=== PATIENT | male | born 1940 | race Caucasian/White ===

== ENCOUNTER 2017-03-01 06:48 | Emergency (ER) | payer MEDICARE ==
[~2017-03-01] VITALS: Ht 180.3 cm; Wt 117.9 kg
[~2017-03-01 06:48] MED LIST: AMARYL 4MG. TAB4 MG PO; BUSPAR 10MG TAB10 MG; BUSPAR 10MG TAB10 MG PO; FUROSEMIDE 20MG20 MG PO; GLIMEPIRIDE 4MG4 MG; GUAIFENESIN 600 MG PO; LASIX 20MG. TAB20 MG; LISINOPRIL 5MG T5 MG; LISINOPRIL 5MG T5 MG PO; LISINOPRIL2.5 MG PO; MAXZIDE 25 MG-31 TAB PO; METFORMIN850 MG PO; OMNICEF 300 MG300 MG PO; POTASSIUM CHLO10 ME3 PO; PRAVACHOL40 M1 PO; PRAVACHOL40 MG PO; PREDNISONE 20MG20 MG PO; SYMBICORT1 AER; TAMSULOSIN HYD0.4 M1; THEO-DUR 300MG300 MG; THEO-DUR 300MG300 MG PO; ZITHROMAX TRI-500 MG PO
--- NOTE | 2017-03-01 07:00 | Emergency Room Report ---
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 PT WITH C /O RIGHT KNEE PAIN ONLY Onset of symptoms date/time:/ or onset unknown for:MEDICAL HX UNKNOWN Treatment Prior to Arrival: EMS TRANSPORT COMMUNITY EDUCATION COORDINATOR Provided by:CLASSIFICATION ANALYST Sepsis Risk Assessment: Temp: 97.9 B/P: 104/58 MAP: 73 Pulse: 82 Resp: 20 Recent fever? N Clinical Suspician of Infection? N Mental Status: 1 - Regular (Normal Baseline) Sepsis Risk:Low Sepsis Risk Have you (or family members/close friends) recently traveled outside the [place]? N If Yes, where/when: Have you had exposure to infectious disease within the past month? N TB? Other? Specify: Comment The patient arrives by ambulance with report of altered mental status. Family reported that his speech was slurred. There is a report that the patient took 2 Ativan this morning. The patient also complains of RIGHT knee pain. He also tells me that he "can't breathe". He was uncooperative during transport. The patient denies any other pain except his RIGHT knee. He is a difficult historian. The patient also reports that the same thing happen to him yesterday morning. 7:20 AM: is now here. She states that for the past couple of hours his behavior has been abnormal. He has been yelling and delirious. She says his speech still does not sound RIGHT. She says it sounds like "his throat is full of congestion". She says that he saw his PCP, Dr. Knowles, in [place] on 4 days ago and was started on lorazepam for anxiety. He has only taken it for 2 days. His knee pain is a new complaint today. ALLERGIES Coded Allergies: No Known Allergies (03/01/17) Home Medications Reported Medications Furosemide (Furosemide) 1 TAB PO BID 90 Days Pravastatin Sodium (Pravachol) 1 TAB PO QHS 90 Days LISINOPRIL (Lisinopril) 5 MG PO DAILY Lorazepam (Lorazepam 1MG) 1 MG PO TIDP PRN ANXIETY BUDESONIDE/FORMOTEROL FUMARATE (Symbicort 80-4.5 Mcg Inhaler) Buspirone Hcl (Buspar 10MG) Glimepiride (Glimepiride 4MG Tablet) TAMSULOSIN HCL (Tamsulosin HCl) Theophylline (Girish-Dur 300MG) (Madhav Dinero MD) History Medical History General Angina: No OR: No Hypertension? No Hyperlipidemia? Yes COPD? Yes Asthma? Yes CVA? No Seizures? No Diabetes? Yes GB Disease: Yes MRSA? No TB? No Cancer? No Immunization Hx DT/Tetanus > 10 YRS Flu LAST YEAR Pneumonia Received In Past Surgical Hx Previous Surgery?Y Gallbladd FINGER Family History Family Hx Diabetes Yes CAD Yes Hypertension Yes Hyperlipidemia Yes Cancer Yes TB Yes Social History Smoking Hx Smoker: Former Smoker Tobacco: No Packs/day 1 1/2 - 2 Packs Alcohol Alcohol: No Additionial History Additional History Old labs reviewed. The patient's renal failure and anemia are new since last laboratory data here in 2012. (Madhav Dinero MD) Review of Systems All Other Systems Reviewed and Negative Constitutional denies fever Respiratory shortness of breath Cardiovascular denies chest pain Gastrointestinal denies abdominal pain, denies vomiting Musculoskeletal joint pain (right knee) Psychiatric/Neurological denies headache (Madhav Dinero MD) Physical Exam Vital Signs Vital Signs Date Time Temp Pulse Resp B/P Pulse O2 O2 Flow FiO2 Ox Delivery Rate 03/01 0940 3 03/01 0940 3 03/01 0940 98 OXYGEN 3 03/01 0859 87 20 120/87 95 03/01 0804 90 20 104/58 99 03/01 0649 97.9 82 20 104/58 97 General Appearance obese, unkempt, smells of urine, appears to been incontinent, behaviors labile. At times screaming at examiner. Other times lying with eyes closed. Eye Exam - bilateral eye normal exam, bilateral eye PERRL, bilateral eye EOMI Ear, Nose, Throat hearing grossly normal, normal ENT inspection Neck normal inspection, non-tender, supple, full range of motion Respiratory Status Yes: trachea midline, chest symmetrical, non tender chest. No: respiratory distress. Lung Sounds bilateral: normal breath sounds, lungs clear. 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 Finger to nose good. Mental status normal mood/affect Skin intact, normal color, warm/dry (Rosette BREWER, Madhav) Medical Decision Making LABS/Meds/Orders Pt receiving controlled substance in ED? No Results/Orders Laboratory Tests 03/01/17 0858: Opiates Screen NEGATIVE, Urine Methadone Screen NEGATIVE, Barbiturates NEGATIVE, Phencyclidine Screen NEGATIVE, Amphetamines Screen NEGATIVE, Benzodiazepines Screen NEGATIVE, Cocaine Screen NEGATIVE, Marijuana (THC) Screen NEGATIVE, Urine Color YELLOW, Urine Appearance CLEAR, Urine pH 5.5, Ur Specific [place] 1.015, Urine Protein NEGATIVE, Urine Ketones NEGATIVE, Urine Blood NEGATIVE, Urine Nitrate NEGATIVE, Urine Bilirubin NEGATIVE, Urine Urobilinogen 0.2, Ur Leukocyte Esterase NEGATIVE, Urine WBC 3-5, Ur Squamous Epith Cells 3-5, Urine Bacteria 2+ , Hyaline Casts 5-10, Urine Mucus 2+, Urine Glucose NEGATIVE 03/01/17 0800: ABG pH 7.33 L, ABG pCO2 (Temp Corrct 43.7, ABG pO2 (Temp Correct 156.8 H, ABG HCO3 22.6, ABG Total CO2 24.0, ABG O2 Sat (Calculated) 98.5, ABG Base Excess - 3.3 L, Kofi Test ACCEPTABLE, Blood Gas Comments LEFT RADIAL 03/01/17 0716: POC Glucose 206 H 03/01/17 0705: Lactic Acid 0.6 03/01/17 0705: Sodium 140, Potassium 4.3, Chloride 104, Carbon Dioxide 27, BUN 47 H, Creatinine 2.7 H, Estimated Creat Clear 39 L, Estimated GFR (MDRD) 23, Glucose 46 *L, Calcium 8.4 L, Total Bilirubin 0.2, AST 22, ALT 16, Alkaline Phosphatase 68, Creatine Kinase 438 H, CK-MB (CK-2) Rel Index 1.0, CK and CKMB Interp 4.4 H, Troponin I < 0.02, Total Protein 7.3, Albumin 3.3 L, Globulin 4.0 H, Albumin/Globulin Ratio 0.8 L, WBC 9.8, RBC 3.23 L, Hgb 9.9 L, Hct 30.4 L, MCV 94.1, RDW 13.9, Plt Count 233, MPV 6.7 L, Gran % 82.5 H, Gran # 8.1 H, Lymphocytes % 10.3, Monocytes % 5.2, Eosinophils % 1.7, Basophils % 0.3, Lymphocytes # 1.0, Monocytes # 0.5, Eosinophils # 0.2, Basophils # 0.0, PUBS MCHC 33.1, MCH 31.2, Salicylates 3.5, Acetaminophen 0 L, Alcohols 0 Current Medication Orders Sig/Cristobal Start time Last Medication Dose Route Stop Time Status Admin Albuterol/Ipratropium 3 ML ONCE ONE 03/01 0930 DC 03/01 INH 03/01 0931 0940 Albuterol/Ipratropium 0 .STK-MED ONE 03/01 0927 DC INH Dextrose 50 ML ONCE ONE 03/01 0715 DC 03/01 IVP 03/01 0716 0707 Sodium Chloride 10 ML PRN PRN 03/01 0715 AC IV 03/02 0702 Sodium Chloride 1,000 ML .Q1H1M 03/01 0715 DC 03/01 IV 03/01 0815 0711 Sodium Chloride 10 ML PRN PRN 03/01 0715 AC IV 03/02 0710 Sodium Chloride 1,000 ML .STK-MED ONE 03/01 0704 DC IV Dextrose 0 .STK-MED ONE 03/01 0701 DC .ROUTE Orders Procedure Date/time Status DIET-NOTHING BY MOUTH 03/01 B Active RT Pulse Oximetry, Provide 03/01 956 Active RT O2 Installation/Change Set 03/01 956 Active RT O2 Therapy, Monitor/[place] 03/01 956 Active RT Aerosol Treatment, Provide 03/01 956 Active RT Aerosol Treatment, Provide 03/01 955 Active RT REQUEST DUONEB 03/01 09 Active OP COURTSEY MEAL 03/01 0858 Active CULTURE, URINE 03/01 858 Active CHEST-PORTABLE 03/01 0855 Active 12 LEAD EKG-ELIJAH (INITIAL) 03/[address] HEAD W/O CONTRAST 03/[address] HEAD REQ 03/01 723 Complete FINGERSTICK BLOOD SUGAR 03/01 0716 Complete URINALYSIS/COMPLETE 03/01 703 Complete SALICYLATE 03/01 703 Complete DRUG ABUSE SCREEN (TRIAGE) 03/01 703 Complete ALCOHOL 03/01 703 Complete Acetaminophen 03/01 703 Complete ELECTROCARDIOGRAM REQUEST 03/01 702 Active ARTERIAL BLOOD GAS REQUEST 03/01 702 Active IV SALINE LOCK 03/01 702 Active LACTIC ACID 03/01 702 Complete CBC WITH AUTO DIFF 03/01 702 Complete CARDIAC ENZYMES 03/01 702 Complete CHEM 12 PROFILE 03/01 702 Complete CM/EKG CM/EKG Comments EKG interpreted by Madhav Dinero MD: Rhythm: sinus Rate: 88 Corinne: normal Ectopy: none Conduction: Incomplete RIGHT bundle-branch block ST Segment Changes: none T Wave Changes: none Q Waves: none No evidence of acute ischemia or injury Baseline artifact and wander present, but I consider the EKG adequate for accurate interpretation. XRAY/CT/US XRAY/CT/US XRAY knee Comment Interpreted by Madhav Dinero MD. Negative for fracture, dislocation, or foreign body. Severe degenerative joint disease with complete loss of joint space medially. Progress - 7:09 AM: Patient much improved afterward D50. Now conversant in an appropriate manner. States that he wears an oxygen mask at night, possibly CPAP, but when he wakes up he is short of breath. 7:45 AM: The x-ray tech reports the patient also complains of LEFT hip pain now. X-ray added. 7:54 AM: X-ray tech reports that patient refused hip and pelvis x-ray, stated it was just hurting from laying on the CT scan table. 8:00 AM: At shift change, I have discussed the patient with Dr. Robins, who will assume care of the patient at this time. I have discussed all clinical information including history, physical and diagnostic study results. Preliminary diagnoses based on information available at this point have been recorded by me. Controlled substance administration and critical care statement are also preliminary, as of the time of handoff. (Rosette BREWER, Madhav) XRAY/CT/US XRAY/CT/US XRAY chest XR interpretation by reviewed by me Xray Results emphysema, no acute consolidations, no pneumothorax CT head CT Results no acute intracranial process (Gilmer Robins MD) Departure Departure Clinical Impression Primary Impression: Hypoglycemia associated with diabetes Secondary Impressions: Anemia Qualifiers: Anemia type: unspecified type Qualified Code: D64.9 - Anemia, unspecified Confusion Dyspnea Qualifiers: Dyspnea type: shortness of breath Qualified Code: R06.02 - Shortness of breath Left hip pain Renal failure Right knee pain Qualifiers: Chronicity: acute Qualified Code: M25.561 - Pain in right knee Slurred speech Condition STABLE Referrals [facility] (Family) ED Critical Care Critical Care Yes Time spent 30-74 min Vital system(s) involved: Metabolic Failure (hypoglycemia) I was present at bedside for Coordinating pt's care, Interpreting EKGs/Strips , During my initial exam, Reviewing lab results, Reviewing old records, Discussing pt condition, For re-examinations (Madhav Dinero MD) Departure Disposition DC Home or Self Care(routine) Additional Instructions You need to check your fingerstick at least 3 times daily to keep good control on your blood glucose. It is important that you keep a log of your blood sugars 3 times daily and present this to your primary care provider in one to 2 days for reevaluation. Return to the emergency department for any acute new concerns. You must follow-up with your primary care provider within the next 2 days for reevaluation. Comments Patient care transferred to me at 0800. He is alert and appropriately interactive on my exam. His chest x-ray does not show any acute consolidations per my read. He is maintaining oxygen saturations of 95 percent on his home dose of oxygen of [address] scan of the head is unremarkable for any signs of acute ischemia and repeat examination by myself reveals no focal neurologic deficits. His fingerstick remains appropriate here on multiple rechecks and patient is tolerating by mouth well. I recommended that he follow-up with his primary care provider today or tomorrow for reevaluation and to consider adjustment and diabetic medications. Creatinine is elevated at 2.7 but we were able to get in touch with his primary care provider office and this is close to his baseline with the last creatinine being 2.4 on February 26. I have recommended frequent fingerstick checks at home at least 3 times daily. (Gilmer Robins MD) at 0803 at 100
[2017-03-01] MEDS ORDERED: LISINOPRIL 5MG T5 MG PO (07:22)
[2017-03-01] MEDS ORDERED: LORAZEPAM1 MG/TABLE PO (07:24)
[2017-03-01 07:27] LABS: LYMPH % 10.3 % (10-50)
[2017-03-01 07:28] LABS: HEMOGLOBIN 9.9 g/dL (14.1-18.0)
[2017-03-01 07:43] LABS: BUN 47 mg/dL (7-18)
[2017-03-01 07:44] LABS: GFR (ESTIMATED) 23 ML/MIN (>60)
[2017-03-01 08:14] LABS: ALLEN'S TEST ACCEPTABLE; ARTERIAL ABE -3.3 MMOL/L (-2.4-+2.3); ARTERIAL PO2 156.8 MMHG (80-100); OXYGEN 32%
--- NOTE | 2017-03-01 08:46 | RADIOLOGY REPORT PS360 ---
KNEE-3 VIEWS-RT Ordering Physician: Madhav Dinero MD Patient Age: 76 years: Male HISTORY: knee painno known trauma. Extreme pain right knee TECHNIQUE: 3 views right knee nonweightbearing FINDINGS Study changes right knee most evident at medial compartment: Marked narrowing of the medial compartment with near [id number] appearance on today's nonweightbearing AP view. Sclerotic changes about this narrowed medial compartment. Mild/moderate Marginal osteophytes most evident about the medial margin of medial compartment. Only very small marginal osteophytes about the patella at patellofemoral joint. Only slight sharpening at lateral margin lateral compartment Trace joint effusion at suprapatella bursa... Bones well mineralized. No fracture nor dislocation calcification posterior to the knee may reflect flabella or possibly vascular calcification IMPRESSION Osteoarthritis medial compartment right knee Prominent degenerative arthritic changes involving medial compartment Near [id number] appearance with sclerotic changes about the narrowed medial joint space. . slightly increased joint fluid suprapatella bursa No fracture.
--- NOTE | 2017-03-01 08:46 | RADIOLOGY REPORT PS360 ---
KNEE-3 VIEWS-RT Ordering Physician: Madhav Dinero MD Patient Age: 76 years: Male HISTORY: knee painno known trauma. Extreme pain right knee TECHNIQUE: 3 views right knee nonweightbearing FINDINGS Study changes right knee most evident at medial compartment: Marked narrowing of the medial compartment with near [id number] appearance on today's nonweightbearing AP view. Sclerotic changes about this narrowed medial compartment. Mild/moderate Marginal osteophytes most evident about the medial margin of medial compartment. Only very small marginal osteophytes about the patella at patellofemoral joint. Only slight sharpening at lateral margin lateral compartment Trace joint effusion at suprapatella bursa... Bones well mineralized. No fracture nor dislocation calcification posterior to the knee may reflect flabella or possibly vascular calcification IMPRESSION Osteoarthritis medial compartment right knee Prominent degenerative arthritic changes involving medial compartment Near [id number] appearance with sclerotic changes about the narrowed medial joint space. . slightly increased joint fluid suprapatella bursa No fracture.
[2017-03-01 09:03] LABS: URINE BILIRUBIN - DIPSTICK NEGATIVE (NEG); URINE BLOOD NEGATIVE (NEG)
[2017-03-01 09:20] LABS: AMPHETAMINES/METAMPHETAMINES NEGATIVE ng/mL (<1000)
[2017-03-01 10:35] VITALS: BP 120/87
--- NOTE | 2017-03-01 17:44 | RADIOLOGY REPORT PS360 ---
CHEST-PORTABLE Ordering Physician: Gilmer Robins MD Patient Age: 76 years: Male HISTORY: soadyspnea short of breath TECHNIQUE: FINDINGS No previous studies available for comparison. Limited chest film. Mild Motion artifact degrades images at CP angle on right not fully included on the image. Lordotic projection .. Nothing definitely acute. No focal pneumonia Mild by basilar atelectasis. Mild hyperexpansion most evident at left upper lung no CHF. Heart upper normal in size. No pneumothorax. No pleural effusion. . Symptoms have progressed recommended follow-up IMPRESSION: Limited chest with nothing definitely acute
--- NOTE | 2017-03-02 16:04 | RADIOLOGY REPORT PS360 ---
CT HEAD WITHOUT CONTRAST CT BONE WINDOWS included ORDERING PHYSICIAN : Gilmer Robins MD PATIENT AGE: 76 years GENDER: Male PROCEDURE: Routine axial images head with brain & bone windows HISTORY: AMS, SPEECH DOESN'T SOUND RIGHT 76-year-old. Altered mental status with memory loss confusion and disorientation Difficulty speech. nonrecognizable speech COMPARISON: No previous studies FINDINGS: Motion artifact as seen on both sets of images but less pronounced on the second set between these 2 studies adequate evaluation. No discrete acute findings. Prominent diffuse cerebral atrophy. Appropriate to slightly advanced for age 76. Prominent CSF spaces anterior aspect lobes bilaterally. This rather flat blunted appearance at the anterior temporal lobes most evident inferiorly is noted-and thus this appearance could indeed reflect underlying arachnoid cysts bilateral as suggested by [facility]. This fluid collection appearance is very slightly more evident on the left. However the possibility of focal atrophy in this region from old trauma is also considered. This patient has diffuse cerebral atrophy.. The anterior temporal lobes are prone to atrophy from trauma than other areas and if history of repeated trauma conceivably this could alternatively account for the current appearance., .. Correlation required. Again in either case this appearance appears long-standing, and old feature rather than acute. . No hemorrhage... No territorial infarct. No subdural collection. Tiny physiologic calcification basal ganglia. The ventricles appear satisfactory Posterior fossa appears satisfactory. .: The skull is intact. No lesions. Paranasal sinus disease. Less sphenoid sinus with moderate to generous mucosal thickening with scant mucosal thickening posterior right sphenoid sinus. Opacification of the posterior left ethmoid air cell. The deviation nasal septum convexity to left. Mastoid air cells unremarkable middle ear clear. Maxillary sinuses clear. . IMPRESSION: No acute intracranial findings. No hemorrhage. No territorial infarct. No subdural collection Diffuse cerebral atrophy Prominent CSF space anterior to the temporal lobes may indeed reflect bilateral arachnoid cysts, as reported by [facility]. If history of significant or repeated at trauma patient conceivably have atrophy here could yield some appearance. However blunted flat interface is slightly does tend to support diagnosis underlying arachnoid cystsas suggested by [facility]. Most likely a long-standing feature.- Any old CT head would be useful for to confirm stability if available elsewhere
== END 2017-03-01 10:37 | disposition home or self-care (01) ==
LOC: ER 06:48
PROVIDERS: Emergency Medicine
DX: E11.649 Type 2 diabetes mellitus with hypoglycemia without coma (principal); E11.65 Type 2 diabetes mellitus with hyperglycemia; D64.9 Anemia, unspecified; M25.561 Pain in right knee; Z79.899 Other long term (current) drug therapy
CPT/HCPCS: G6040